=== PATIENT | male | born 1980 | race Two or more races ===

== ENCOUNTER 2017-05-10 15:30 | Emergency (ER) | payer SELFPAY ==
[~2017-05-10] VITALS: Ht 182.9 cm; Wt 73.0 kg
[2017-05-10 15:33] VITALS: BP 129/77
== END 2017-05-10 17:38 | disposition left against medical advice (07) ==
LOC: ER 17:30
DX: S19.9XXA Unspecified injury of neck, initial encounter (principal); V49.9XXA Car occupant (driver) (passenger) injured in unspecified traffic accident, initial encounter; Y93.89 Activity, other specified; Y92.89 Other specified places as the place of occurrence of the external cause; Y99.8 Other external cause status
CPT/HCPCS: 99283